=== PATIENT | male | born 1995 | race Two or more races ===

== ENCOUNTER 2016-11-14 16:25 | Emergency (ER) | payer OTHER ==
[~2016-11-14] VITALS: Ht 167.6 cm; Wt 65.8 kg
[2016-11-14 16:37] VITALS: BP 134/84
--- NOTE | 2016-11-14 16:46 | NUR ---
Dr. Calabrese evaluating patient in triage room.
[2016-11-14] MEDS ORDERED: IBUPROFEN 600 MG TAB PO ONE (16:50)
[2016-11-14] MEDS ORDERED: LIDOCAINE 1% 500 MG/50 ML VIAL INJ ONE (16:50)
--- NOTE | 2016-11-14 17:27 | NUR ---
Patient ambulated to bed 5 with family. RN evaluating patient at bedside.
--- NOTE | 2016-11-14 17:35 | NUR ---
PT CAME TO ER DUE TO CUT Left 3RD DIGIT WITH GLASS CUP;PAIN SCALE OF 4/10;DENIES ANY TINGLING /NUMBNESS SENSATION ON LEFT ARM;DENIES CP/SOB/N/V;AAOX4;NO ACUTE DISTRESS NOTED;HOB ELEVATED;NEEDS ATTENDED;SAFETY MEASURES DONE;POSITIONED FOR COMFORT;MD AT BEDISDE;UNKNOWN LAST TETANUS.DENIES ANY MEDICAL HX;
[2016-11-14] MEDS ORDERED: NEOMYCIN/POLYMYXIN/BACITRACIN 0.9 GM/1 PKT TP ONE (18:21)
--- NOTE | 2016-11-14 18:38 | NUR ---
PT RESTING ON BED;NO ACUTE DISTRESS NOTED;WILL CONTINUE TO MONITOR PT.
[2016-11-14 18:51] VITALS: BP 133/86
--- NOTE | 2016-11-14 18:51 | NUR ---
Patient discharged with v/s stable. Written and verbal after care instructions given and explained. Patient alert, oriented and verbalized understanding of instructions. Ambulatory with to car. All questions addressed prior to discharge. ID band removed. Patient advised to follow up with PMD. Rx of MOTRIN given. Patient educated on indication of medication including possible reaction and side effects. Opportunity to ask questions provided and answered.
== END 2016-11-14 18:51 | disposition home or self-care (01) ==
LOC: MED 16:25
DX: S61.211A Laceration without foreign body of left index finger without damage to nail, initial encounter (principal); X58.XXXA Exposure to other specified factors, initial encounter; Y93.89 Activity, other specified; Y92.89 Other specified places as the place of occurrence of the external cause; Y99.8 Other external cause status
CPT/HCPCS: 12001; 73120; 90471; 90715; 99284; Q0092

== ENCOUNTER 2016-11-25 08:58 | Emergency (ER) | payer OTHER ==
[~2016-11-25] VITALS: Ht 167.6 cm; Wt 65.8 kg
[2016-11-25 09:09] VITALS: BP 130/78
--- NOTE | 2016-11-25 11:15 | NUR ---
PT AMBULATED TO OF2 AT THIS TIME.
--- NOTE | 2016-11-25 11:19 | NUR ---
21M BIB FAMILY C/O SUTURE REMOVAL FROM 11 DAYS AGO; PT C/O THROBBING PAIN TO LEFT THIRD DIGIT LACERATION, NON-RADIATING, 01/24 X 11 DAYS AGO; PT STATES LACERATION FROM GLASS; NO SWELLING, NO DRAINAGE OR REDNESS NOTED AT THIS TIME; LEFT CAP REFILL < 3 SECONDS, LEFT RADIAL PULSE PALPABLE; NO LOSS OF SENSATION TO LEFT HAND AT THIS TIME; PT A&OX4, PERRLA, BL LUNG SOUNDS CLEAR, RR EVEN/UNLABORED, DENIES N/V/D OR FEVER AT THIS TIME; STEADY GAIT; PT RESTING IN CHAIR, POSITIONED FOR COMFORT; ER MD MADE AWARE OF STATUS. WILL CONTINUE TO MONITOR.
[2016-11-25 11:50] VITALS: BP 136/71
== END 2016-11-25 11:51 | disposition home or self-care (01) ==
LOC: MED 08:58
DX: S61.213D Laceration without foreign body of left middle finger without damage to nail, subsequent encounter (principal); X58.XXXD Exposure to other specified factors, subsequent encounter; Y92.89 Other specified places as the place of occurrence of the external cause; Y99.8 Other external cause status
CPT/HCPCS: 99283

== ENCOUNTER 2017-07-03 16:28 | Emergency (ER) | payer OTHER ==
[~2017-07-03] VITALS: Ht 165.1 cm; Wt 71.3 kg
[2017-07-03 16:48] VITALS: BP 157/99
--- NOTE | 2017-07-03 16:55 | NUR ---
PT AA&OX4 AT THIS TIME; EVEN AND STEADY GAIT; STATES NO DIZZINESS OR PAIN AT THIS TIME; ER MD NOTIFIED; PT TO LOBBY AWAITING OPEN BED AT THIS TIME.
--- NOTE | 2017-07-03 17:23 | NUR ---
PATIENT TO ER BED 3
--- NOTE | 2017-07-03 17:30 | NUR ---
21M BIB FAMILY WITH C/O DIZZINESS AT WORK TODAY; PT STS SIMILIAR EPISODE 2 WKS AGO AND 4 MONTHS AGO; PT STS DIZZINESS FEELS LIKE HE FEELS LIKE THE ROOM IS SPINNING WHEN HE IS DIZZY; PT DENIES ANY BAIRES, PAIN, PALPITATIONS, SOB, N/V, OR VISUAL ACUITY CHANGES; PT IS AOX4, RR ARE EVEN AND UNLABORED. NAD. ER MD AWARE OF PT STATUS. WILL CONTINUE TO MONITOR.
[2017-07-03 19:05] VITALS: BP 142/87
== END 2017-07-03 19:04 | disposition home or self-care (01) ==
LOC: MED 16:28
DX: R55 Syncope and collapse (principal)
CPT/HCPCS: 70450; 93005; 99284

== ENCOUNTER 2023-07-02 10:53 | Emergency (ER) | payer OTHER ==
[~2023-07-02] VITALS: Ht 165.1 cm; Wt 69.4 kg
[2023-07-02 11:24] VITALS: BP 136/93; PULSE 98; RESP 20; TEMP 99.1; O2SAT 98
[2023-07-02] MEDS ORDERED: BENZ-300 PO (11:55)
[2023-07-02] MEDS ORDERED: PROM118S5 PO (11:55)
[2023-07-02] MEDS ORDERED: ACET-10509 PO (11:55)
[2023-07-02] MEDS ORDERED: AZIT1PDR6 PO (11:55)
[2023-07-02] MEDS ORDERED: IBUP-1842 PO (11:55)
[2023-07-02 12:41] LABS: FLU A ANTIGEN negative (NEGATIVE); FLU B ANTIGEN negative (NEGATIVE)
== END 2023-07-02 12:42 | disposition home or self-care (01) ==
LOC: MED 10:53
DX: J06.9 Acute upper respiratory infection, unspecified (principal); Z20.822 Contact with and (suspected) exposure to COVID-19; Z79.899 Other long term (current) drug therapy
CPT/HCPCS: 99283

== ENCOUNTER 2023-07-08 07:30 | Emergency (ER) | payer OTHER ==
[~2023-07-08] VITALS: Ht 165.1 cm; Wt 69.9 kg
[~2023-07-08 07:30] MED LIST: ACET-10509 PO; AZIT1PDR6 PO; BENZ-300 PO; IBUP-1842 PO; PROM118S5 PO
[2023-07-08 07:33] VITALS: BP 150/83; PULSE 112; RESP 15; TEMP 98.3
[2023-07-08] MEDS ORDERED: KETOROLAC 30 MG/ML VIAL IM ONE (07:50)
[2023-07-08] MEDS ORDERED: ACETAMINOPHEN EXTRA STRENGTH 500 MG TAB PO ONE (07:50)
[2023-07-08] MEDS ORDERED: ONDANSETRON 4 MG ODT PO ONE (07:50)
[2023-07-08] MEDS ORDERED: ONDA-188 PO (08:06)
[2023-07-08 08:24] VITALS: BP 135/83; PULSE 90; RESP 16; TEMP 98; O2SAT 98
[2023-07-08 09:26] LABS: FLU A ANTIGEN negative (NEGATIVE); FLU B ANTIGEN NEGATIVE (NEGATIVE)
== END 2023-07-08 08:24 | disposition home or self-care (01) ==
LOC: MED 07:30
DX: J06.9 Acute upper respiratory infection, unspecified (principal); Z20.822 Contact with and (suspected) exposure to COVID-19; Z79.899 Other long term (current) drug therapy
CPT/HCPCS: 87426; 87804; 96372; 99283; J1885; Q0162

== ENCOUNTER 2023-09-01 07:36 | Emergency (ER) | payer OTHER ==
[~2023-09-01] VITALS: Ht 167.6 cm; Wt 65.8 kg
[~2023-09-01 07:36] MED LIST changes: +ONDA-188 PO
[2023-09-01 07:37] VITALS: BP 132/86; PULSE 103; RESP 16; TEMP 97.9; O2SAT 99
[2023-09-01] MEDS: PROCHLORPERAZINE 10 MG/2 ML VIAL IM ONE (08:07)
[2023-09-01] MEDS: KETOROLAC 60 MG/2 ML VIAL IM ONE (08:14)
[2023-09-01] MEDS ORDERED: ACET-9234 PO (09:22)
[2023-09-01 09:36] VITALS: O2SAT 99
[2023-09-01 09:40] VITALS: BP 124/65; PULSE 85; RESP 16; TEMP 98.4
== END 2023-09-01 09:40 | disposition home or self-care (01) ==
LOC: MED 07:36
DX: G44.209 Tension-type headache, unspecified, not intractable (principal); Z79.899 Other long term (current) drug therapy
CPT/HCPCS: 96372; 99284; J0780; J1885

== ENCOUNTER 2024-05-11 10:44 | Emergency (ER) | payer OTHER ==
[~2024-05-11] VITALS: Ht 160 cm; Wt 72.1 kg
[~2024-05-11 10:44] MED LIST changes: -ACET-10509 PO; +ACET-9234 PO; +ACET500T99 PO
[2024-05-11 10:50] VITALS: BP 138/93; PULSE 107; RESP 20; TEMP 98; O2SAT 98
[2024-05-11] MEDS: PROCHLORPERAZINE 10 MG/2 ML VIAL IM ONE (11:57)
[2024-05-11] MEDS: KETOROLAC 30 MG/ML VIAL IM ONE (11:58)
[2024-05-11] MEDS ORDERED: ACET500T99 PO (14:30)
[2024-05-11 14:48] VITALS: BP 118/63; PULSE 65; RESP 16; TEMP 97.9; O2SAT 97
== END 2024-05-11 14:48 | disposition home or self-care (01) ==
LOC: MED 10:44
DX: G43.909 Migraine, unspecified, not intractable, without status migrainosus (principal); Z79.899 Other long term (current) drug therapy
CPT/HCPCS: 96372; 99285; J0780; J1885; Q0163